=== PATIENT | female | born 1945 | race Caucasian/White ===

== ENCOUNTER → 2017-09-14 | Outpatient (CLI) | payer MEDICARE ==
[~2017-09-14] MED LIST: APIX5TAB PO; ASPI-621 PO; BROM100T PO; CALC1CAP8 PO; CALCIUM PO; DRON400T PO; MAGNESIUM PO; MULT-516 PO; OMNIPAQUE 350 MG/ML, 150 ML BOTTLE ONE; UBID100C19 PO; VITA1TAB19 PO; VITAMIN D PO
== END | disposition home or self-care (01) ==
LOC: CFH 12:14
PROVIDERS: ATTEND Internal Medicine Cardiovascular Disease
DX: R91.8 Other nonspecific abnormal finding of lung field (principal); I48.0 Paroxysmal atrial fibrillation
CPT/HCPCS: 71020; 75572; 82565; Q9967

== ENCOUNTER 2017-09-15 06:32 | Observation (INO) | payer MEDICARE ==
[2017-09-14 14:02] VITALS: BP 144/81
[2017-09-14 14:38] LABS: HEMATOCRIT 45.4 % (34.6-47.8); HEMOGLOBIN 15.5 g/dL (11.7-16.4); WHITE BLOOD COUNT 5.6 x10^3/uL (3.4-10)
[2017-09-14 14:50] LABS: ASPARTATE AMINO TRANSFERASE 17 U/L (15-37); BLOOD UREA NITROGEN 9 mg/dL (7-18)
[~2017-09-15] VITALS: Ht 165.1 cm; Wt 57.4 kg
[~2017-09-15 06:32] MED LIST changes: -APIX5TAB PO; -OMNIPAQUE 350 MG/ML, 150 ML BOTTLE ONE
[2017-09-15] MEDS ORDERED: SODIUM CHLORIDE 0.9% 1,000 ML IV SCH ×2 (06:44→07:00)
[2017-09-15] MEDS ORDERED: PROTAMINE SULFATE 10 MG/ML, 5ML ONE (07:41)
[2017-09-15] MEDS ORDERED: HEPARIN 1,000 UNITS/ML, 10ML ONE (07:41)
[2017-09-15] MEDS ORDERED: MIDAZOLAM 1 MG/ML, 5ML ONE (07:42)
[2017-09-15] MEDS ORDERED: LIDOCAINE 2%, 20ML ONE (07:42)
[2017-09-15] MEDS ORDERED: FENTANYL PF 250 MCG/5ML ONE (07:42)
[2017-09-15] MEDS ORDERED: DEXAMETHASONE 4 MG/ML, 1ML ONE (07:58)
[2017-09-15] MEDS ORDERED: ONDANSETRON 2MG/ML, 2ML ONE (07:58)
[2017-09-15] MEDS ORDERED: PROPOFOL 10 MG/ML, 20ML ONE (07:58)
[2017-09-15] MEDS ORDERED: SUCCINYLCHOLINE 20 MG/ML, 10ML ONE (07:58)
[2017-09-15] MEDS ORDERED: ROCURONIUM 10 MG/ML,10ML ONE (07:58)
[2017-09-15] MEDS ORDERED: SCOPOLAMINE PATCH, 1.5MG PATCH.TD72 TD ONE (08:00)
[2017-09-15] MEDS: APIXABAN 5 MG TABLET PO SCH ×2 (11:30→20:08)
[2017-09-15 13:31] VITALS: BP 108/66
[2017-09-15] MEDS: SOTALOL 80MG TABLET PO SCH (18:50)
[2017-09-15 19:33] VITALS: BP 96/59
[2017-09-16 01:14] VITALS: BP 96/47
[2017-09-16 05:01] VITALS: BP 80/48
[2017-09-16 05:21] VITALS: BP 84/56
[2017-09-16] MEDS: SOTALOL 80MG TABLET PO SCH (05:27)
[2017-09-16] MEDS ORDERED: SODIUM CHLORIDE 0.9%, 500ML IVBOLUS ONE (05:30)
[2017-09-16 08:19] VITALS: BP 94/61
[2017-09-16] MEDS ORDERED: VITAMIN D PO SCH (09:00)
[2017-09-16] MEDS ORDERED: CALCIUM 600 MG PO SCH (09:00)
[2017-09-16] MEDS ORDERED: MAGNESIUM 250 MG PO SCH (09:00)
[2017-09-16] MEDS ORDERED: BROMELAINS PO SCH (09:00)
[2017-09-16] MEDS: MULTIVITAMIN 1 TABLET PO SCH (09:05)
[2017-09-16] MEDS: ASPIRIN 81 MG TABLET EC PO SCH (09:05)
[2017-09-16] MEDS: APIXABAN 5 MG TABLET PO SCH ×2 (09:06→19:50)
[2017-09-16 13:23] VITALS: BP 92/58
[2017-09-16 19:46] VITALS: BP 108/69
[2017-09-17 00:43] VITALS: BP 116/76
[2017-09-17] MEDS: MULTIVITAMIN 1 TABLET PO SCH (08:43)
[2017-09-17] MEDS: APIXABAN 5 MG TABLET PO SCH (08:44)
[2017-09-17] MEDS: ASPIRIN 81 MG TABLET EC PO SCH (08:44)
[2017-09-17] MEDS ORDERED: MULTIVITS,STRESS FORMULA 1 TABLET PO SCH (09:00)
[2017-09-17] MEDS ORDERED: APIX5TAB PO (09:03)
[2017-09-17 09:14] VITALS: BP 126/79
== END 2017-09-17 10:53 | disposition home or self-care (01) ==
LOC: CACL 06:32 → ORIP 11:17 → 5SO 13:22
PROVIDERS: ADMIT Internal Medicine Cardiovascular Disease; ATTEND Internal Medicine Cardiovascular Disease
DX: I48.0 Paroxysmal atrial fibrillation (principal); I45.81 Long QT syndrome; I27.20 Pulmonary hypertension, unspecified; I95.9 Hypotension, unspecified; Z87.891 Personal history of nicotine dependence
CPT/HCPCS: 36415; 80053; 85025; 85347; 93005; 93306; 93312; 93321; 93325; 93613; 93656; 93657; 93662; C1730; C1732; C1759; C1766; C1893; C1894; G0378; J0330; J1100; J1644; J2250; J2405; J2704; J2720; J3010; J3490; J7040

== ENCOUNTER 2017-10-17 14:43 | Emergency (ER) | payer MEDICARE ==
[~2017-10-17] VITALS: Ht 165.1 cm; Wt 50.0 kg
[~2017-10-17 14:43] MED LIST changes: +APIX5TAB PO
[2017-10-17 15:27] LABS: BASOPHILS # (AUTO) 0.05 x10^3/uL (0-0.1); BASOPHILS % (AUTO) 1 % (0-1); EOSINOPHILS # (AUTO) 0.04 x10^3/uL (0-0.4); EOSINOPHILS % (AUTO) 1 % (1-7); LYMPHOCYTES # (AUTO) 2.02 x10^3/uL (1-3.4); LYMPHOCYTES % (AUTO) 31 % (22-44); MD NO; MEAN CORPUSCULAR HEMOGLOBIN 32.7 pg (27.0-34.8); MEAN CORPUSCULAR HGB CONC 33.7 g/dL (32.4-35.8); MEAN PLATELET VOLUME 8.1 fL (7.4-10.4); MONOCYTES # (AUTO) 0.71 x10^3/uL (0.2-0.8); MONOCYTES % (AUTO) 11 % (2-9); NEUTROPHILS # (AUTO) 3.73 x10^3/uL (1.8-6.8); NEUTROPHILS % (AUTO) 57 % (42-75); PLATELET COUNT 216 x10^3/uL (130-400); RED BLOOD COUNT 4.49 x10^6/uL (3.82-5.3); RED CELL DISTRIBUTION WIDTH 13.9 % (9.6-15.2)
[2017-10-17] MEDS ORDERED: PROPOFOL 10 MG/ML, 20ML IVPush ONE (15:30)
[2017-10-17 15:34] LABS: ALBUMIN 4.2 g/dL (3.4-5.0); ANION GAP 8 mmol/L (5-15); CALCIUM 9.1 mg/dL (8.5-10.1); CHLORIDE 104 mmol/L (98-107); CREATININE 0.95 mg/dL (0.55-1.02)
[2017-10-17] MEDS ORDERED: PROPOFOL 10 MG/ML, 20ML ONE (15:35)
[2017-10-17 18:08] VITALS: BP 117/68
== END 2017-10-17 18:11 | disposition home or self-care (01) ==
LOC: ED 18:00
DX: I48.92 Unspecified atrial flutter (principal); Z79.01 Long term (current) use of anticoagulants; Z87.891 Personal history of nicotine dependence
CPT/HCPCS: 36415; 80048; 82040; 85025; 92960; 93005; 99152; 99153; 99291; J2704

== ENCOUNTER 2017-11-02 07:34 | Day surgery (SDC) | payer MEDICARE ==
[2017-11-02] MEDS ORDERED: SODIUM CHLORIDE 0.9% 500 ML IV PRN (08:07)
[2017-11-02] MEDS ORDERED: DRON400T PO (08:48)
[2017-11-02 08:56] LABS: BASOPHILS # (AUTO) 0.04 x10^3/uL (0-0.1); BASOPHILS % (AUTO) 1 % (0-1); EOSINOPHILS # (AUTO) 0.03 x10^3/uL (0-0.4); EOSINOPHILS % (AUTO) 1 % (1-7); LYMPHOCYTES # (AUTO) 1.28 x10^3/uL (1-3.4); LYMPHOCYTES % (AUTO) 23 % (22-44); MD NO; MEAN CORPUSCULAR HEMOGLOBIN 32.5 pg (27.0-34.8); MEAN CORPUSCULAR HGB CONC 34.1 g/dL (32.4-35.8); MEAN CORPUSCULAR VOLUME 95.2 fL (80-100); MEAN PLATELET VOLUME 8.5 fL (7.4-10.4); MONOCYTES # (AUTO) 0.49 x10^3/uL (0.2-0.8); MONOCYTES % (AUTO) 9 % (2-9); NEUTROPHILS # (AUTO) 3.77 x10^3/uL (1.8-6.8); NEUTROPHILS % (AUTO) 67 % (42-75); PLATELET COUNT 225 x10^3/uL (130-400); RED BLOOD COUNT 4.83 x10^6/uL (3.82-5.3); RED CELL DISTRIBUTION WIDTH 13.7 % (9.6-15.2)
[2017-11-02 09:07] LABS: ALANINE AMINOTRANSFERASE 20 U/L (12-78); ALBUMIN 4.1 g/dL (3.4-5.0); ANION GAP 9 mmol/L (5-15); CALCIUM 9.2 mg/dL (8.5-10.1); CHLORIDE 105 mmol/L (98-107); CREATININE 1.11 mg/dL (0.55-1.02)
[2017-11-02 09:09] LABS: ALKALINE PHOSPHATASE 84 U/L (45-117); TOTAL PROTEIN 8.6 g/dL (6.4-8.2)
[2017-11-02] MEDS ORDERED: PLEASE ENTER HEIGHT AND WEIGHT MC SCH (09:30)
[2017-11-02] MEDS ORDERED: PROPOFOL 10 MG/ML, 20ML ONE (10:36)
== END 2017-11-02 13:28 ==
LOC: CACL 07:34
PROVIDERS: ATTEND Internal Medicine Cardiovascular Disease
DX: I48.92 Unspecified atrial flutter (principal); I48.0 Paroxysmal atrial fibrillation; Z88.6 Allergy status to analgesic agent; Z88.5 Allergy status to narcotic agent; Z88.8 Allergy status to other drugs, medicaments and biological substances
CPT/HCPCS: 36415; 80053; 85025; 92960; J2704

== ENCOUNTER 2017-11-14 06:20 | Observation (INO) | payer MEDICARE ==
[~2017-11-14] VITALS: Ht 165.1 cm; Wt 53.1 kg
[2017-11-14] MEDS ORDERED: SODIUM CHLORIDE 0.9% 1,000 ML IV SCH ×2 (06:24→06:30)
[2017-11-14 06:38] VITALS: BP 152/80
[2017-11-14] MEDS ORDERED: MIDAZOLAM 1 MG/ML, 2ML ONE (07:35)
[2017-11-14] MEDS ORDERED: FENTANYL PF 250 MCG/5ML ONE (07:35)
[2017-11-14] MEDS ORDERED: HEPARIN 1,000 UNITS/ML, 10ML ONE (08:01)
[2017-11-14] MEDS ORDERED: LIDOCAINE 2%, 20ML ONE (08:01)
[2017-11-14] MEDS ORDERED: PROTAMINE SULFATE 10 MG/ML, 5ML ONE (08:01)
[2017-11-14] MEDS ORDERED: ROCURONIUM 10 MG/ML,10ML ONE (08:07)
[2017-11-14] MEDS ORDERED: SUCCINYLCHOLINE 20 MG/ML, 10ML ONE (08:07)
[2017-11-14] MEDS ORDERED: PROPOFOL 10 MG/ML, 20ML ONE (08:07)
[2017-11-14] MEDS ORDERED: SCOPOLAMINE PATCH, 1.5MG PATCH.TD72 TD ONE (08:30)
[2017-11-14] MEDS ORDERED: ACETAMINOPHEN 325 MG TABLET PO PRN ×2 (10:30→11:00)
[2017-11-14] MEDS ORDERED: ZOLPIDEM 5MG TABLET PO PRN (10:30)
[2017-11-14] MEDS ORDERED: LORazepam 2 MG/ML, 1ML IVPush PRN (11:00)
[2017-11-14] MEDS ORDERED: PROMETHAZINE 25 MG/ML, 1ML IV PRN (11:00)
[2017-11-14] MEDS ORDERED: EPHEDRINE 50 MG/ML, 1ML IVPush PRN (11:00)
[2017-11-14] MEDS ORDERED: ONDANSETRON 2MG/ML, 2ML IVPush PRN (11:00)
[2017-11-14] MEDS ORDERED: HYDROmorphone 1 MG/ML, 1ML IV PRN (11:00)
[2017-11-14] MEDS ORDERED: FENTANYL PF 100 MCG/2ML IV PRN (11:00)
[2017-11-14] MEDS ORDERED: MIDAZOLAM 1 MG/ML, 2ML IV PRN (11:00)
[2017-11-14] MEDS ORDERED: OXYcodone 5 MG/5 ML ORAL.SOL UDC PO PRN (11:00)
[2017-11-14] MEDS ORDERED: APIXABAN 5 MG TABLET ONE (11:22)
[2017-11-14 11:44] VITALS: BP 115/71
[2017-11-14 14:12] VITALS: BP 121/70
[2017-11-14 19:09] VITALS: BP 107/71
[2017-11-14] MEDS ORDERED: APIXABAN 5 MG TABLET PO ONE (21:00)
[2017-11-14] MEDS ORDERED: APIXABAN 5 MG TABLET PO SCH (21:00)
[2017-11-14] MEDS: DRONEDARONE 400MG TABLET PO SCH (21:19)
[2017-11-14] MEDS: APIXABAN 5 MG TABLET PO SCH (21:19)
[2017-11-15 01:09] VITALS: BP 112/71
[2017-11-15 07:07] VITALS: BP 96/60
[2017-11-15] MEDS ORDERED: MULTIVITAMIN 1 TABLET PO SCH (09:00)
[2017-11-15] MEDS: APIXABAN 5 MG TABLET PO SCH (09:02)
[2017-11-15] MEDS: DRONEDARONE 400MG TABLET PO SCH (09:02)
[2017-11-15 09:05] VITALS: BP 99/61
== END 2017-11-15 12:32 | disposition home or self-care (01) ==
LOC: CACL 06:20 → ORIP 10:05 → 5SO 11:35 → DCLOUNGE 11-15 12:15
PROVIDERS: ADMIT Internal Medicine Cardiovascular Disease; ATTEND Internal Medicine Cardiovascular Disease
DX: I48.4 Atypical atrial flutter (principal); I48.0 Paroxysmal atrial fibrillation
CPT/HCPCS: 85347; 93308; 93312; 93321; 93325; 93613; 93656; 93662; C1730; C1732; C1759; C1766; C1893; C1894; G0378; J0330; J1644; J2250; J2704; J2720; J3010; J3490

== ENCOUNTER → 2017-11-29 | Outpatient (CLI) | payer MEDICARE | END | disposition home or self-care (01) | LOC: CVU 11:48 | PROVIDERS: ATTEND Physician Assistant Medical | DX: I31.3 Pericardial effusion (noninflammatory) (principal); I48.0 Paroxysmal atrial fibrillation; J44.9 Chronic obstructive pulmonary disease, unspecified; Z98.890 Other specified postprocedural states | CPT/HCPCS: 93308; 93320; 94060; 94726; 94729 ==

== ENCOUNTER 2018-01-26 09:58 | Day surgery (SDC) | payer MEDICARE ==
[~2018-01-26] VITALS: Ht 165.1 cm; Wt 50.5 kg
[2018-01-26 10:28] VITALS: BP 129/57
[2018-01-26] MEDS ORDERED: DILT180C72 PO (10:44)
[2018-01-26 11:16] LABS: BASOPHILS # (AUTO) 0.07 x10^3/uL (0-0.1); BASOPHILS % (AUTO) 1 % (0-1); EOSINOPHILS # (AUTO) 0.01 x10^3/uL (0-0.4); EOSINOPHILS % (AUTO) 0 % (1-7); LYMPHOCYTES # (AUTO) 1.58 x10^3/uL (1-3.4); LYMPHOCYTES % (AUTO) 29 % (22-44); MD NO; MEAN CORPUSCULAR HEMOGLOBIN 32.5 pg (27.0-34.8); MEAN CORPUSCULAR HGB CONC 34.6 g/dL (32.4-35.8); MEAN CORPUSCULAR VOLUME 93.9 fL (80-100); MEAN PLATELET VOLUME 8.5 fL (7.4-10.4); MONOCYTES # (AUTO) 0.46 x10^3/uL (0.2-0.8); MONOCYTES % (AUTO) 8 % (2-9); NEUTROPHILS # (AUTO) 3.37 x10^3/uL (1.8-6.8); NEUTROPHILS % (AUTO) 61 % (42-75); PLATELET COUNT 207 x10^3/uL (130-400); RED BLOOD COUNT 4.25 x10^6/uL (3.82-5.3); RED CELL DISTRIBUTION WIDTH 13.4 % (9.6-15.2)
[2018-01-26 11:26] LABS: ANION GAP 11 mmol/L (5-15); CALCIUM 9.5 mg/dL (8.5-10.1); CHLORIDE 104 mmol/L (98-107); CREATININE 1.04 mg/dL (0.55-1.02)
== END 2018-01-26 12:07 ==
LOC: CACL 09:58
PROVIDERS: ATTEND Internal Medicine Cardiovascular Disease
DX: I48.91 Unspecified atrial fibrillation (principal); Z53.9 Procedure and treatment not carried out, unspecified reason
CPT/HCPCS: 36415; 80048; 85025; 93005

== ENCOUNTER 2018-05-22 16:30 | Inpatient (IN) | payer MEDICARE ==
[~2018-05-22] VITALS: Ht 165.1 cm; Wt 52.9 kg
[~2018-05-22 16:30] MED LIST changes: +DILT180C72 PO; +UBID100C10 PO; -UBID100C19 PO
[2018-05-22] MEDS ORDERED: SODIUM CHLORIDE 0.9% 1,000 ML IV ONE (16:41)
[2018-05-22] MEDS ORDERED: PROPOFOL 10 MG/ML, 20ML ONE (16:58)
[2018-05-22] MEDS ORDERED: ADENOSINE 6 MG/2 ML ONE (16:59)
[2018-05-22] MEDS ORDERED: SODIUM CHLORIDE FLUSH 10ML SYR IVF ONE (17:00)
[2018-05-22 17:04] LABS: BASOPHILS # (AUTO) 0.06 x10^3/uL (0-0.1); BASOPHILS % (AUTO) 1 % (0-1); EOSINOPHILS # (AUTO) 0.01 x10^3/uL (0-0.4); EOSINOPHILS % (AUTO) 0 % (1-7); LYMPHOCYTES # (AUTO) 2.07 x10^3/uL (1-3.4); LYMPHOCYTES % (AUTO) 32 % (22-44); MD NO; MEAN CORPUSCULAR HEMOGLOBIN 32.1 pg (27.0-34.8); MEAN CORPUSCULAR HGB CONC 34.1 g/dL (32.4-35.8); MEAN CORPUSCULAR VOLUME 94.3 fL (80-100); MEAN PLATELET VOLUME 8.4 fL (7.4-10.4); MONOCYTES % (AUTO) 9 % (2-9); NEUTROPHILS # (AUTO) 3.74 x10^3/uL (1.8-6.8); NEUTROPHILS % (AUTO) 58 % (42-75); PLATELET COUNT 247 x10^3/uL (130-400); RED BLOOD COUNT 5.15 x10^6/uL (3.82-5.3)
[2018-05-22] MEDS ORDERED: SODIUM CHLORIDE 0.9% 1,000 ML IV SCH (17:09)
[2018-05-22 17:16] LABS: ALBUMIN 4.6 g/dL (3.4-5.0); ANION GAP 10 mmol/L (5-15); CALCIUM 10.2 mg/dL (8.5-10.1); CHLORIDE 103 mmol/L (98-107)
[2018-05-22 17:21] LABS: CREATININE 1.07 mg/dL (0.55-1.02); TROPONIN I < 0.015 ng/mL (0.000-0.045)
[2018-05-22] MEDS ORDERED: ONDANSETRON 2MG/ML, 2ML IV PRN (17:30)
[2018-05-22] MEDS: LISINOPRIL 10 MG TABLET PO SCH (17:30)
[2018-05-22] MEDS ORDERED: BISACODYL 10 MG SUPP PR PRN (17:30)
[2018-05-22] MEDS ORDERED: ACETAMINOPHEN 650 MG/20.3 ML UDC PO PRN (17:30)
[2018-05-22] MEDS ORDERED: APIXABAN 5 MG TABLET PO ONE (20:30)
[2018-05-22] MEDS: SODIUM CHLORIDE FLUSH 10ML SYR IVF SCH (21:00)
[2018-05-22 21:26] VITALS: BP 149/87
[2018-05-23 01:59] VITALS: BP 138/81
[2018-05-23 06:39] VITALS: BP 118/59
[2018-05-23] MEDS: LISINOPRIL 10 MG TABLET PO SCH (08:56)
[2018-05-23] MEDS: SODIUM CHLORIDE FLUSH 10ML SYR IVF SCH ×2 (08:57→21:00)
[2018-05-23 10:05] VITALS: BP 125/94
[2018-05-23] MEDS ORDERED: DILTIAZEM 5 MG/ML, 5ML IVPush ONE (10:30)
[2018-05-23] MEDS ORDERED: DILTIAZEM 5 MG/ML, 10ML IVPush ONE (10:30)
[2018-05-23] MEDS ORDERED: HEPARIN 1,000 UNITS/ML, 10ML ONE (11:08)
[2018-05-23] MEDS ORDERED: PROTAMINE SULFATE 10 MG/ML, 5ML ONE (11:08)
[2018-05-23] MEDS ORDERED: LIDOCAINE 1%, 50ML ONE (11:08)
[2018-05-23] MEDS ORDERED: FENTANYL PF 250 MCG/5ML ONE (11:09)
[2018-05-23] MEDS ORDERED: MIDAZOLAM 1 MG/ML, 2ML ONE (11:09)
[2018-05-23] MEDS ORDERED: ROCURONIUM 10 MG/ML,10ML ONE (11:20)
[2018-05-23] MEDS ORDERED: EPHEDRINE 50 MG/ML, 1ML ONE (11:20)
[2018-05-23] MEDS ORDERED: DEXAMETHASONE 4 MG/ML, 1ML ONE (11:48)
[2018-05-23] MEDS ORDERED: ONDANSETRON 2MG/ML, 2ML ONE (11:48)
[2018-05-23] MEDS ORDERED: ISOPROTERENOL 0.2MG/ML, 5ML ONE (13:49)
[2018-05-23] MEDS ORDERED: SUCCINYLCHOLINE 20 MG/ML, 10ML ONE (14:18)
[2018-05-23] MEDS ORDERED: PROPOFOL 10 MG/ML, 20ML ONE (14:18)
[2018-05-23] MEDS ORDERED: ACETAMINOPHEN 325 MG TABLET PO PRN ×2 (14:30→15:00)
[2018-05-23] MEDS ORDERED: OXYcodone 5 MG/5 ML ORAL.SOL UDC PO PRN (15:00)
[2018-05-23] MEDS ORDERED: EPHEDRINE 50 MG/ML, 1ML IVPush PRN (15:00)
[2018-05-23] MEDS ORDERED: ZOLPIDEM 5MG TABLET PO PRN (15:00)
[2018-05-23] MEDS ORDERED: HYDROmorphone 1 MG/ML, 1ML IV PRN (15:00)
[2018-05-23] MEDS ORDERED: MEPERIDINE/PF 25MG/0.5ML IVPush PRN (15:00)
[2018-05-23] MEDS ORDERED: ONDANSETRON ODT 8 MG PO PRN (15:00)
[2018-05-23] MEDS ORDERED: hydrALAzine 20 MG/ML, 1ML IV PRN (15:00)
[2018-05-23] MEDS ORDERED: MORPHINE SULFATE 4 MG/ML, 1ML IVPush PRN (15:00)
[2018-05-23] MEDS ORDERED: ALBUTEROL SULFATE 2.5 MG/3 ML NPPB PRN (15:00)
[2018-05-23] MEDS ORDERED: PROMETHAZINE 25 MG/ML, 1ML IV PRN (15:00)
[2018-05-23] MEDS ORDERED: LORazepam 2 MG/ML, 1ML IVPush PRN (15:00)
[2018-05-23] MEDS ORDERED: ONDANSETRON 2MG/ML, 2ML IV PRN (15:00)
[2018-05-23] MEDS ORDERED: LABETALOL 5MG/ML, 20ML IV PRN (15:00)
[2018-05-23] MEDS ORDERED: PROMETHAZINE 12.5 MG SUPP PR PRN (15:00)
[2018-05-23] MEDS ORDERED: FENTANYL PF 100 MCG/2ML IV PRN (15:00)
[2018-05-23] MEDS ORDERED: MIDAZOLAM 1 MG/ML, 2ML IV PRN (15:00)
[2018-05-23] MEDS ORDERED: APIXABAN 5 MG TABLET ONE (15:50)
[2018-05-23] MEDS: APIXABAN 5 MG TABLET PO SCH (15:54)
[2018-05-23 16:31] VITALS: BP 126/78
[2018-05-23 19:04] VITALS: BP 106/61
[2018-05-24 01:51] VITALS: BP 113/69
[2018-05-24 07:28] VITALS: BP 117/68
[2018-05-24] MEDS: SODIUM CHLORIDE FLUSH 10ML SYR IVF SCH ×2 (08:32→21:54)
[2018-05-24] MEDS: APIXABAN 5 MG TABLET PO SCH ×2 (08:33→21:00)
[2018-05-24] MEDS: LISINOPRIL 10 MG TABLET PO SCH (08:33)
[2018-05-24] MEDS: DILTIAZEM CD 180 MG CAP.ER.24H PO SCH (08:33)
[2018-05-24] MEDS ORDERED: BROMELAINS PO SCH (09:00)
[2018-05-24] MEDS ORDERED: DILTIAZEM 5 MG/ML, 5ML IVPush ONE (10:00)
[2018-05-24] MEDS: FLECAINIDE 50MG TABLET PO SCH ×2 (12:24→21:55)
[2018-05-24 14:02] VITALS: BP 102/63
[2018-05-24 19:00] VITALS: BP 114/75
[2018-05-25 00:54] VITALS: BP 107/68
[2018-05-25 08:20] VITALS: BP 135/79
[2018-05-25] MEDS: SODIUM CHLORIDE FLUSH 10ML SYR IVF SCH ×2 (08:39→21:06)
[2018-05-25] MEDS: DILTIAZEM CD 180 MG CAP.ER.24H PO SCH (08:40)
[2018-05-25] MEDS: LISINOPRIL 10 MG TABLET PO SCH (08:40)
[2018-05-25] MEDS: APIXABAN 5 MG TABLET PO SCH ×3 (08:42→20:57)
[2018-05-25] MEDS ORDERED: REGADENOSON 0.4 MG/5 ML SYRINGE ONE (09:39)
[2018-05-25] MEDS: FLECAINIDE 50MG TABLET PO SCH ×2 (11:24→21:03)
[2018-05-25 13:18] VITALS: BP 151/89
[2018-05-25] MEDS ORDERED: FLECAINIDE 50MG TABLET PO ONE (13:30)
[2018-05-25] MEDS: DILTIAZEM 30 MG TABLET PO SCH ×2 (15:38→20:57)
[2018-05-25 19:24] VITALS: BP 130/92
[2018-05-25] MEDS ORDERED: DILT120C80 PO (21:14)
[2018-05-26] MEDS: DILTIAZEM 30 MG TABLET PO SCH ×3 (03:10→11:57)
[2018-05-26 03:12] VITALS: BP 119/70
[2018-05-26] MEDS: SODIUM CHLORIDE FLUSH 10ML SYR IVF SCH (07:33)
[2018-05-26 08:00] VITALS: BP 130/68
[2018-05-26] MEDS: LISINOPRIL 10 MG TABLET PO SCH (08:05)
[2018-05-26] MEDS: FLECAINIDE 50MG TABLET PO SCH (08:24)
[2018-05-26] MEDS ORDERED: FLEC100T PO (08:45)
[2018-05-26] MEDS ORDERED: DILT120C80 PO (08:45)
[2018-05-26] MEDS ORDERED: APIX5TAB PO (08:45)
[2018-05-26] MEDS ORDERED: APIXABAN 5 MG TABLET PO ONE (09:00)
== END 2018-05-26 12:40 | disposition home or self-care (01) | DRG 273 ==
LOC: OR 17:08 → EDIP 17:09 → OR 17:47 → 5SO 19:18
PROVIDERS: ADMIT Internal Medicine Cardiovascular Disease; ATTEND Internal Medicine Cardiovascular Disease
PROC: 5A2204Z Restoration of Cardiac Rhythm, Single (ICD-10-PCS; 2018-05-22)
PROC: 5A2204Z Restoration of Cardiac Rhythm, Single (ICD-10-PCS; 2018-05-22)
PROC: 02K83ZZ Map Conduction Mechanism, Percutaneous Approach (ICD-10-PCS; 2018-05-23)
PROC: 4A023FZ Measurement of Cardiac Rhythm, Percutaneous Approach (ICD-10-PCS; 2018-05-23)
PROC: 4A02XM4 Measurement of Cardiac Total Activity, External Approach (ICD-10-PCS; 2018-05-23)
PROC: 4A0234Z Measurement of Cardiac Electrical Activity, Percutaneous Approach (ICD-10-PCS; 2018-05-23)
PROC: B246ZZZ Ultrasonography of Right and Left Heart (ICD-10-PCS; 2018-05-23)
PROC: B24BZZ4 Ultrasonography of Heart with Aorta, Transesophageal (ICD-10-PCS; 2018-05-23)
PROC: 02583ZZ Destruction of Conduction Mechanism, Percutaneous Approach (ICD-10-PCS; principal; 2018-05-23 12:45)
DX: I48.4 Atypical atrial flutter (principal); I50.31 Acute diastolic (congestive) heart failure; D68.69 Other thrombophilia; Q21.1 Atrial septal defect; I47.1 Supraventricular tachycardia; I08.1 Rheumatic disorders of both mitral and tricuspid valves; I45.81 Long QT syndrome; I10 Essential (primary) hypertension; I48.0 Paroxysmal atrial fibrillation; Z88.6 Allergy status to analgesic agent; Z88.5 Allergy status to narcotic agent; Z88.8 Allergy status to other drugs, medicaments and biological substances; Z87.891 Personal history of nicotine dependence
CPT/HCPCS: 36415; 71045; 78452; 80048; 82040; 84484; 85025; 85347; 93005; 93017; 93306; 93312; 93321; 93325; 93462; 93613; 93621; 93623; 93653; 93662; C1731; C1732; C1766; C1893; C1894; G0378; J1100; J1644; J2250; J2405; J2704; J2720; J2785; J3010; J3490; A9502; C1730; C9898; J0330

== ENCOUNTER → 2018-10-17 | Outpatient (CLI) | payer MEDICARE ==
[~2018-10-17] MED LIST changes: -ASPI-621 PO; +ASPI81TA45 PO; +DILT120C80 PO; +FLEC100T PO
== END | disposition home or self-care (01) ==
LOC: CFH 12:14
PROVIDERS: ATTEND Thoracic Surgery (Cardiothoracic Vascular Surgery)
DX: J90 Pleural effusion, not elsewhere classified (principal); I48.2 Chronic atrial fibrillation
CPT/HCPCS: 71046

== ENCOUNTER 2018-11-08 06:26 | Observation (INO) | payer MEDICARE ==
[2018-11-05 11:36] VITALS: BP 152/77
[2018-11-05 12:02] LABS: BASOPHILS # (AUTO) 0.02 x10^3/uL (0-0.1); BASOPHILS % (AUTO) 0 % (0-1); EOSINOPHILS # (AUTO) 0.04 x10^3/uL (0-0.4); EOSINOPHILS % (AUTO) 1 % (1-7); LYMPHOCYTES # (AUTO) 1.61 x10^3/uL (1-3.4); LYMPHOCYTES % (AUTO) 27 % (22-44); MD NO; MEAN CORPUSCULAR HEMOGLOBIN 32.8 pg (27.0-34.8); MEAN CORPUSCULAR HGB CONC 34.1 g/dL (32.4-35.8); MEAN CORPUSCULAR VOLUME 96.2 fL (80-100); MEAN PLATELET VOLUME 8.3 fL (7.4-10.4); MONOCYTES # (AUTO) 0.72 x10^3/uL (0.2-0.8); MONOCYTES % (AUTO) 12 % (2-9); NEUTROPHILS # (AUTO) 3.65 x10^3/uL (1.8-6.8); NEUTROPHILS % (AUTO) 60 % (42-75); PLATELET COUNT 236 x10^3/uL (130-400); RED BLOOD COUNT 4.05 x10^6/uL (3.82-5.3); RED CELL DISTRIBUTION WIDTH 13.3 % (9.6-15.2)
[2018-11-05 12:09] LABS: ALANINE AMINOTRANSFERASE 32 U/L (12-78); ALBUMIN 3.6 g/dL (3.4-5.0); ANION GAP 6 mmol/L (5-15); CALCIUM 9.5 mg/dL (8.5-10.1); CHLORIDE 107 mmol/L (98-107)
[2018-11-05 12:12] LABS: ALKALINE PHOSPHATASE 107 U/L (45-117); BILIRUBIN,TOTAL 0.4 mg/dL (0.2-1.0); CREATININE 0.86 mg/dL (0.55-1.02)
[~2018-11-08] VITALS: Ht 165.1 cm; Wt 54.1 kg
[~2018-11-08 06:26] MED LIST changes: +ASCO500T8 PO; +ASPI-496 PO; +COLC0.6T37 PO; +KRIL1CAP29 PO; +LIDO1ADH44 TP; +UBID100C41 PO
[2018-11-08] MEDS ORDERED: SODIUM CHLORIDE 0.9% 1,000 ML IV SCH (06:40)
[2018-11-08] MEDS ORDERED: ACETAMINOPHEN 325 MG TABLET PO PRN ×2 (07:00→10:00)
[2018-11-08] MEDS ORDERED: MIDAZOLAM 1 MG/ML, 2ML ONE (07:55)
[2018-11-08] MEDS ORDERED: FENTANYL PF 250 MCG/5ML ONE (07:55)
[2018-11-08] MEDS ORDERED: ONDANSETRON 2MG/ML, 2ML ONE (08:03)
[2018-11-08] MEDS ORDERED: DEXAMETHASONE 4 MG/ML, 5ML ONE (08:03)
[2018-11-08] MEDS ORDERED: LIDOCAINE 1%, 20ML ONE (08:33)
[2018-11-08] MEDS ORDERED: PROTAMINE SULFATE 10 MG/ML, 5ML ONE (09:33)
[2018-11-08] MEDS ORDERED: FENTANYL PF 100 MCG/2ML IV PRN (10:00)
[2018-11-08] MEDS ORDERED: ONDANSETRON ODT 8 MG PO PRN (10:00)
[2018-11-08] MEDS ORDERED: EPHEDRINE 50 MG/ML, 1ML IVPush PRN (10:00)
[2018-11-08] MEDS ORDERED: HALOPERIDOL 5 MG/ML IV PRN (10:00)
[2018-11-08] MEDS ORDERED: ALBUTEROL SULFATE 2.5 MG/3 ML NPPB PRN (10:00)
[2018-11-08] MEDS ORDERED: ONDANSETRON 2MG/ML, 2ML IV PRN (10:00)
[2018-11-08] MEDS ORDERED: PROMETHAZINE 12.5 MG SUPP PR PRN (10:00)
[2018-11-08] MEDS ORDERED: DIAZEPAM 5 MG/ML, 2ML IVPush PRN (10:00)
[2018-11-08] MEDS ORDERED: hydrALAzine 20 MG/ML, 1ML IV PRN (10:00)
[2018-11-08] MEDS ORDERED: MEPERIDINE/PF 25MG/0.5ML IVPush PRN (10:00)
[2018-11-08] MEDS ORDERED: MIDAZOLAM 1 MG/ML, 2ML IV PRN (10:00)
[2018-11-08] MEDS ORDERED: PROMETHAZINE 25 MG/ML, 1ML IM PRN (10:00)
[2018-11-08] MEDS ORDERED: OXYcodone 5 MG/5 ML ORAL.SOL UDC PO PRN (10:00)
[2018-11-08] MEDS ORDERED: HYDROmorphone 2 MG/ML, 1ML IVPush PRN (10:00)
[2018-11-08] MEDS ORDERED: MORPHINE SULFATE 4 MG/ML, 1ML IVPush PRN (10:00)
[2018-11-08] MEDS: APIXABAN 5 MG TABLET PO SCH ×2 (10:58→20:43)
[2018-11-08] MEDS ORDERED: APIXABAN 5 MG TABLET ONE (10:58)
[2018-11-08 13:30] VITALS: BP 136/83
[2018-11-08] MEDS ORDERED: ROCURONIUM 10MG/ML,5ML ONE (15:27)
[2018-11-08] MEDS ORDERED: PROPOFOL 10 MG/ML, 20ML ONE (15:27)
[2018-11-08] MEDS ORDERED: SUCCINYLCHOLINE 20 MG/ML, 10ML ONE (15:27)
[2018-11-08 18:47] VITALS: BP 150/88
[2018-11-09 02:30] VITALS: BP 117/69
[2018-11-09 07:20] VITALS: BP 114/70
[2018-11-09] MEDS: APIXABAN 5 MG TABLET PO SCH (08:38)
[2018-11-09] MEDS ORDERED: [UNRECOGNIZED DRUG - OTHER] PO SCH (09:00)
[2018-11-09] MEDS ORDERED: VITAMIN D3 PO SCH (09:00)
[2018-11-09] MEDS ORDERED: CALCIUM CARBONATE PO SCH (09:00)
[2018-11-09] MEDS ORDERED: UBIDECARENONE 50 MG PO SCH (09:00)
[2018-11-09] MEDS ORDERED: [UNRECOGNIZED DRUG - OTHER] PO SCH (09:00)
[2018-11-09] MEDS ORDERED: ASCORBIC ACID 500 MG PO SCH (09:00)
[2018-11-09] MEDS ORDERED: MULTIVITAMIN PO SCH (09:00)
[2018-11-09] MEDS ORDERED: KRILL OIL PO SCH (09:00)
== END 2018-11-09 11:40 | disposition home or self-care (01) ==
LOC: CACL 06:26 → ORIP 09:36 → 5SO 13:35 → DCLOUNGE 11-09 11:32
PROVIDERS: ADMIT Internal Medicine Cardiovascular Disease; ATTEND Internal Medicine Cardiovascular Disease
DX: I48.0 Paroxysmal atrial fibrillation (principal); I48.92 Unspecified atrial flutter; Z88.6 Allergy status to analgesic agent; Z88.1 Allergy status to other antibiotic agents; Z88.5 Allergy status to narcotic agent; Z88.8 Allergy status to other drugs, medicaments and biological substances; Z87.891 Personal history of nicotine dependence; Z79.01 Long term (current) use of anticoagulants
CPT/HCPCS: 36415; 71046; 80053; 85025; 85347; 93005; 93308; 93321; 93325; 93462; 93613; 93653; 93662; C1730; C1731; C1732; C1759; C1766; C1893; C1894; G0378; J0330; J1100; J2250; J2405; J2704; J2720; J3010; J3490